=== PATIENT | female | born 2000 | race American Indian/Alaskan Native ===

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

== ENCOUNTER 2018-03-18 16:14 | Emergency (ER) | payer SELFPAY ==
[2018-03-18 17:21] VITALS: BP 125/74
--- NOTE | 2018-03-18 21:20 | Emergency Department Report ---
Minor Respiratory - HPI Chief Complaint: Medical Clearance Stated Complaint: MOLD EXPOSURE Time Seen by Provider: 03/18/18 21:10 Duration: 3 months Pain Location: Other (reports headache at 3 out of 10 located all over head but none today. She said headache when she is exposed to environment with mold.) Severity: mild Minor Respiratory: Yes Rhinorrhea (nasal congestion), Yes Able to Tolerate Fluids, Yes Cough (dark mucus. ), No Sore Throat, No Ear Pain, No Sick Contacts , No Hemoptysis, No Chest Pain, No Shortness of Breath, No Fever Other History: Patient here reports that she lives in apartment and she is here with her friend and reporting that there are explosive black mold in the department for a period of 3 months. She is reporting that her symptoms are headache that located all over that episodic when if there is true to 10 and no headache today. She experienced headache when she is in the apartment. She is also complaining of dark mucus, cough, dizziness and fatigue which she sought medical help for in the past. She said these symptoms are worse when she is in the apartment. Denies any fever or chills at present. Denies any vomiting or nausea present. Denies any abdominal or back pain. Denies blurred vision. [id number] medication is not helping. Denies any chest pain or shortness of breath. Symptoms are intermittent and worse when in environment that has mold. ED Review of Systems ROS: Stated complaint: MOLD EXPOSURE Other details as noted in HPI Constitutional: malaise. denies: chills, fever Eyes: denies: eye pain, eye discharge, vision change ENT: congestion. denies: ear pain, throat pain, dental pain, hearing loss, epistaxis Respiratory: cough. denies: orthopnea, shortness of breath, SOB with exertion, SOB at rest, stridor, wheezing Cardiovascular: denies: chest pain, palpitations, dyspnea on exertion, edema, syncope, paroxysmal nocturnal dyspnea Gastrointestinal: denies: abdominal pain, nausea, vomiting, diarrhea, constipation, hematemesis, melena, hematochezia Genitourinary: denies: urgency, dysuria, frequency, hematuria, discharge Musculoskeletal: denies: back pain, joint swelling, arthralgia, myalgia Skin: denies: rash, lesions Neurological: headache. denies: weakness, numbness, paresthesias, confusion, abnormal gait, vertigo ED Past Medical Hx - Past Medical History Previous Medical History?: Yes Hx Seizures: Yes Hx Asthma: Yes Additional medical history: eczema,ASTHMA - Surgical History Past Surgical History?: No - Family History Family history: hypertension - Social History Smoking Status: Never Smoker Substance Use Type: None - Medications Home Medications: Home Medications Medication Instructions Recorded Confirmed Last Taken Type ALBUTEROL Inhaler [Proair] 2 puff IH QID PRN #1 inhalation 09/01/17 Unknown Rx Albuterol Sulfate [Albuterol 0.63% 0.63 mg IH QID PRN #1 box 09/01/17 Unknown Rx NEBS] Dexamethasone [Decadron] 20 mg PO ONCE #1 tablet 09/01/17 Unknown Rx Fluticasone (Nf) [Flovent 220 2 puff IH BID #1 puff 09/01/17 Unknown Rx MCG/PUFF HFA] Ipratropium [Atrovent] 0.5 mg IH Q6HRT #1 box 09/01/17 Unknown Rx Nebulizer Accessories [Aeroneb Go] 1 each MC ONCE PRN #1 each 09/01/17 Unknown Rx Nebulizer and Compressor [Easy Air 1 each MC ONCE PRN #1 each 09/01/17 Unknown Rx Compressor Nebulizer] Cetirizine HCl [ZyrTEC] 10 mg PO QDAY 14 Days #14 capsule 03/18/18 Unknown Rx Fluticasone [Flonase] 1 spray NS QDAY 14 Days #1 bottle 03/18/18 Unknown Rx Ibuprofen [Motrin] 600 mg PO Q8H PRN #12 tablet 03/18/18 Unknown Rx Minor Respiratory Exam - Exam General: Vital signs noted. No distress. Alert and acting appropriately. This is a 17-year-old female well-nourished well-developed in no acute distress. HEENT: Yes Moist Mucous Membranes (uvula midline and oral airways patent.), Yes Rhinorrhea (pale boggy with clear drainage), No Pharyngeal Erythema, No Pharyngeal Exudates, No Conjuctival Injection, No Frontal Tenderness, No Maxillary Tenderness Ear: Neither TM Bulge (congestion bilateral TM), Neither TM Erythema, Neither EAC Pain, Neither EAC Discharge Neck: Yes Supple (full range of motion without C-spine tenderness), No Adenopathy Lungs: Yes Good Air Exchange (CTAB), No Wheezes, No Ronchi, No Stridor, No Cough , No Labored Respirations, No Retractions, No Use of Accessory Muscles, No Other Abnormal Lung Sounds Heart: Yes Regular (S1, S2.), No Murmur Abdomen: Yes Normal Bowel Sounds (in all quadrants), No Tenderness (nontender to palpate in all quadrants, ), No Peritoneal Signs Skin: No Rash, No Edema Neurologic: Alert and oriented 3, GCS of 15 and normal gait Musculoskeletal: Unremarkable. EXT: No clubbing, cyanosis or edema. +2 pulses all extremities and no neurovascular ED Course Vital Signs 03/18/18 17:19 Temperature 98.8 F Pulse Rate 66 Respiratory 18 Rate Blood Pressure 125/74 O2 Sat by Pulse 100 Oximetry - Reevaluation(s) Reevaluation #1: 03/18/18 22:42 Patient had uneventful ED stay ED Medical Decision Making - Medical Decision Making ED course Diagnoses 1: Allergic rhinitis-will discharge with Zyrtec and Flonase 2: Cough and congestion-stable. 3:headache episodic-stable. We'll discharge her Motrin 4: Report mold exposure-remove yourself from environment if you're exposed to mold. I discussed the patient that she needs to reports incidence of black mold to the [facility] and she says she lives [place] the [place] from the [facility] thigh told her to walk across the street and reported incident. I also discussed with her that she needs to remove herself from the environment for symptoms to be relief. She says she cannot do that right now. Prescription for Motrin, Zyrtec and Flonase. Patient to follow up with primary care physician . Referral to [facility]. Patient given on mold, most reporting, medication, diagnosis and need for follow -up and she voiced understanding Patient discharged home in stable condition with her friend to follow up with primary care physician. Critical care attestation.: If time is entered above; I have spent that time in minutes in the direct care of this critically ill patient, excluding procedure time. ED Disposition Clinical Impression: Cough in adult patient, Environment contains mold Allergic rhinitis Qualifiers: Allergic rhinitis trigger: unspecified Allergic rhinitis seasonality: unspecified seasonality Qualified Code(s): J30.9 - Allergic rhinitis, unspecified Disposition: - TO HOME OR SELFCARE Is pt being admited?: No Does the pt Need Aspirin: No Condition: Stable Instructions: Allergic Rhinitis (ED), Acute Cough (ED) Additional Instructions: Please follow up with primary care physician as instructed remove yourself from environment if you think your exposed to mold Reports mold to Department of Health and since he said he live across the street he can walk across the street report incident Take medication as prescribed Prescriptions: Cetirizine HCl [ZyrTEC] 10 mg PO QDAY 14 Days #14 capsule Fluticasone [Flonase] 1 spray NS QDAY 14 Days #1 bottle Ibuprofen [Motrin] 600 mg PO Q8H PRN #12 tablet PRN Reason: Pain Referrals: PRIMARY CARE, [Primary Care Provider] - 2-3 Days [facility] [Outside] - 2-3 Days Forms: Work/School Release Form(ED)
== END 2018-03-18 22:50 | disposition home or self-care (01) ==
LOC: ED 16:14
DX: J30.9 Allergic rhinitis, unspecified (principal)
CPT/HCPCS: 99282